=== PATIENT | female | born 1955 | race Caucasian/White ===

== ENCOUNTER 2019-05-05 14:07 | Outpatient (CLI) | payer OTHER ==
--- NOTE | 2019-05-05 15:12 | ULT ---
THYROID ULTRASOUND: Date: 05/05/2019 COMPARISON: None. HISTORY: Evaluate thyroid nodules. TECHNIQUE: Multiplanar Vargas scale sonographic imaging of the thyroid gland obtained. FINDINGS: The thyroid parenchyma is markedly heterogeneous. The thyroid isthmus measures 4.0 mm in AP dimension . Right lobe measures 4.0 x 0.9 x 1.1 cm. Left lobe measures 4.8 x 1.6 x 1.6 cm. There is a small cystic mildly complex nodule within the thyroid isthmus measuring 8.0 x 4.0 x 6.0 mm . There are numerous tiny hypoechoic nodules scattered throughout the right lobe of the thyroid gland m easuring up to approximately 5.0 mm. Similar primarily complex cystic nodules are noted scattered thr oughout the left lobe measuring up to 1.1 cm. No dominant solid nodule is noted within the thyroid gl and. IMPRESSION: TI-RADS Category 3 - Mildly suspicious. As no nodules are greater than or equal to 1.5 cm, no follow- up imaging is recommended. POS: AUREA
== END 2019-05-05 14:08 | disposition home or self-care (01) ==
LOC: SCSULT 14:07
PROVIDERS: ATTEND Internal Medicine Cardiovascular Disease
DX: E04.1 Nontoxic single thyroid nodule (principal)
CPT/HCPCS: 76536

== ENCOUNTER 2022-11-02 07:59 | Outpatient (CLI) | payer MEDICARE, OTHER | END 2022-11-02 08:00 | disposition home or self-care (01) | LOC: SCSMRI 07:59 | PROVIDERS: ATTEND Orthopaedic Surgery | DX: M47.26 Other spondylosis with radiculopathy, lumbar region (principal); S32.019D Unspecified fracture of first lumbar vertebra, subsequent encounter for fracture with routine healing | CPT/HCPCS: 72148 ==

== ENCOUNTER 2024-02-19 11:38 | Outpatient (CLI) | payer MEDICARE, OTHER | END 2024-02-19 11:39 | disposition home or self-care (01) | LOC: SCSRAD 11:38 | PROVIDERS: ATTEND Nurse Practitioner Family | DX: R07.81 Pleurodynia (principal) ==

== ENCOUNTER 2024-10-22 07:27 | Outpatient (CLI) | payer MEDICARE, OTHER | END 2024-10-22 07:28 | disposition home or self-care (01) | LOC: CT 07:27 | PROVIDERS: ATTEND Urology | DX: N39.41 Urge incontinence (principal); D35.02 Benign neoplasm of left adrenal gland; K74.60 Unspecified cirrhosis of liver | CPT/HCPCS: 74178 ==